=== PATIENT | male | born 1990 | race Caucasian/White ===

== ENCOUNTER 2019-03-23 23:21 | Inpatient (IN) | payer SELFPAY ==
[~2019-03-23] VITALS: Ht 177.8 cm; Wt 95.7 kg
[2019-03-24] VITALS (7 sets, daily range): BP systolic 127–159; BP diastolic 48–99; Ht 177.8 cm; Wt 95.7 kg
[2019-03-24 00:58] LABS: BASOPHIL % 0.6 % (0-2); PLATELET COUNT 339 x10^3mcL (130-400); RED CELL DISTRIBUTION WIDTH 12.9 % (11.5-14.5)
[2019-03-24] MEDS ORDERED: ASPIR 8181 MG (01:01)
[2019-03-24] MEDS ORDERED: HCTZ/LISINOPRIL1 TA2 PO (01:01)
[2019-03-24 01:06] LABS: UA SPECIFIC GRAVITY 1.015 (1.005-1.035); microscopic required? YES; urine erythrocyte TRACE (NEGATIVE)
[2019-03-24 01:08] LABS: CALCIUM 9.1 mg/dL (8.5-10.1); CARBON DIOXIDE 27.5 mmol/L (21-32); CHLORIDE SERUM 100 mmol/L (98-107); CREATININE SERUM 0.9 mg/dL (0.7-1.3); GFR1 > 60 mL/min; GLUCOSE SERUM 96 mg/dL (74-106); POTASSIUM SERUM 3.6 mmol/L (3.5-5.1); SODIUM SERUM 137 mmol/L (136-145)
[2019-03-24 01:20] LABS: ALKALINE PHOSPHATASE 116 U/L (46-116); ALT/SGPT 34 U/L (16-63); AST/SGOT 26 U/L (15-37); BILIRUBIN TOTAL 0.4 mg/dL (0.20-1.00); LIPASE 78 IU/L (73-393); MAGNESIUM 1.9 mg/dL (1.8-2.4); T4(THYROXINE) 5.7 ug/dL (4.7-13.3); TOTAL PROTEIN, SERUM 8.2 g/dL (6.4-8.2)
[2019-03-24 01:25] LABS: AMPHETAMINE QUAL UR NONE DETECTED (See below)
[2019-03-24 01:31] LABS: AMYLASE 127 U/L (25-115); CHOLESTEROL 217 mg/dL (<200); HDL CHOLESTEROL 101 mg/dL (40-60)
[2019-03-24 07:35] LABS: BASOPHIL % 0.4 % (0-2); PLATELET COUNT 331 x10^3mcL (130-400); RED CELL DISTRIBUTION WIDTH 12.8 % (11.5-14.5)
[2019-03-24 08:33] LABS: CALCIUM 9.3 mg/dL (8.5-10.1); CARBON DIOXIDE 30.7 mmol/L (21-32); CREATININE SERUM 0.8 mg/dL (0.7-1.3); GFR1 > 60 mL/min; GLUCOSE SERUM 92 mg/dL (74-106)
[2019-03-24 09:15] LABS: CHLORIDE SERUM 100 mmol/L (98-107); POTASSIUM SERUM 3.7 mmol/L (3.5-5.1); SODIUM SERUM 138 mmol/L (136-145)
[2019-03-25 05:34] VITALS: BP 141/92
[2019-03-25 06:20] LABS: BASOPHIL % 0.4 % (0-2); PLATELET COUNT 327 x10^3mcL (130-400); RED CELL DISTRIBUTION WIDTH 13.1 % (11.5-14.5)
[2019-03-25 06:48] LABS: CALCIUM 9.5 mg/dL (8.5-10.1); CARBON DIOXIDE 30.5 mmol/L (21-32); CHLORIDE SERUM 97 mmol/L (98-107); CREATININE SERUM 1.1 mg/dL (0.7-1.3); GFR1 > 60 mL/min; GLUCOSE SERUM 99 mg/dL (74-106); POTASSIUM SERUM 4.2 mmol/L (3.5-5.1); SODIUM SERUM 135 mmol/L (136-145)
[2019-03-25 09:03] VITALS: BP 140/88
[2019-03-25] MEDS ORDERED: ZES20 PO (09:53)
[2019-03-25] MEDS ORDERED: HYD25 PO (09:54)
[2019-03-25] MEDS ORDERED: LIPI20 PO (09:55)
[2019-03-25 11:40] VITALS: BP 141/82
== END 2019-03-25 14:14 | disposition home or self-care (01) | DRG 305 ==
LOC: ED 23:21 → MU 03-24 00:35 → DU 03-24 00:35 → MU 03-24 14:37
PROVIDERS: Emergency Medicine; ADMIT General Practice
DX: I16.0 Hypertensive urgency (principal); I10 Essential (primary) hypertension; E78.5 Hyperlipidemia, unspecified; Z91.14 Patient's other noncompliance with medication regimen; Z79.899 Other long term (current) drug therapy; Z72.89 Other problems related to lifestyle; Z82.49 Family history of ischemic heart disease and other diseases of the circulatory system
CPT/HCPCS: 82962; 83880; G0378; Q0092